=== PATIENT | male | born 2000 | race Caucasian/White ===

== ENCOUNTER 2024-07-30 13:17 | Emergency (ER) | payer MEDICAID, SELFPAY ==
[2024-07-30 13:23] VITALS: BP 153/90; PULSE 74; RESP 16; TEMP 36.4; O2SAT 99; BMI 23.6
--- NOTE | 2024-07-30 13:28 | ED_ITS ---
HPI - Dental/Oral 2 General: Chief complaint: Dental/Oral Stated complaint: left jaw swelling and pain Time Seen by Provider: 07/30/24 13:21 Source: patient Mode of arrival: ambulatory Limitations: no limitations History of Present Illness: Patient is a 23-year-old male presents to ED today with a complaint of mouth pain near his left lower third molar. He states he has had intermittent pain here previously that has always went away but states he has now had pain for several days. He has not noticed any swelling to his face. He is not having any trouble eating, drinking, speaking, swallowing. Teeth map: 1. Onset (ago): day(s) Duration: constant Severity: moderate Relieving factors: nothing Exacerbating factors: nothing Associated symptoms: Denies ear or mastoid pain, fever(s) or odynophagia Related Data Previous Rx's Medication Instructions Recorded chlorhexidine gluconate 0.12 % 15 ml buccal BID #473 mL 07/30/24 mouthwash (Peridex) penicillin V potassium 500 mg 500 mg PO Q8H 7 days #21 tabs 07/30/24 tablet Allergies Allergy/AdvReac Type Severity Reaction Status Date / Time No Known Allergies Allergy Verified 07/30/24 13:25 Review of Systems 2 Const: Denies: fever(s), chills, body aches, fatigue or malaise ENMT: Reports: mouth pain; Denies: throat pain, uvular edema, enlarged tonsils, odynophagia, hoarseness, swelling of lips/tongue, dry mouth or ear or mastoid pain Card: Denies: chest pain Resp: Denies: dyspnea GI: Denies: nausea or vomiting Musc: Denies: neck pain Neuro: Denies: headache(s) Physical Exam 2 Const: COMMON NORMALS: no acute distress, average body habitus, no limitations, healthy appearing, alert and well nourished HENMT: FACE & SINUS: normal facial exam; no edema MOUTH: Normal oral and palatal mucosa present and lip normal TEETH & GINGIVA IMAGES: 1. impacted wisdom tooth with surrounding edema/erosion into buccal mucosa THROAT: posterior oropharynx normal and tonsils normal; no uvular edema Neck/C-Spine: GENERAL: Yes normal visual inspection, No anterior neck swelling and No submandibular swelling Neuro: SENSORIUM/ORIENTATION: Yes alert Course 2 Vital Signs: Vital signs: Vital Signs Temperature 97.5 F L 07/30/24 13:23 Pulse Rate 74 07/30/24 13:23 Respiratory Rate 16 07/30/24 13:23 Blood Pressure 153/90 07/30/24 13:23 Pulse Oximetry 99 07/30/24 13:23 Oxygen Delivery Me thod Room Air 07/30/24 13:23 MDM - Dental/Oral Medical Decision Making Recommend follow up with dentist as soon as possible as he needs extraction. Discussed to call ahead of time to make sure they perform impacted wisdom tooth extraction-he may require OMFS. Patient verbalized understanding. Return precautions discussed. No radiology studies performed this visit Discharge Plan Discharge Patient Disposition: Home Clinical Impression: Impacted third molar tooth Condition: Stable Prescriptions: New penicillin V potassium 500 mg tablet 500 mg PO Q8H 7 Days Qty: 21 0RF Peridex 0.12 % mouthwash 15 ml BUCCAL BID Qty: 473 0RF Discharge Orders: Discharge ED (Routine); Ordered 07/30/24 Ordered By: Katrina Mishra Referrals: Nery Spaulding FNP [Primary Care Provider] - Coding Level of Care Code ED [employer] for Christina Rogers
[2024-07-30 13:43] VITALS: BP 138/91; PULSE 78; RESP 18; O2SAT 98
== END 2024-07-30 13:44 | disposition home or self-care (01) ==
PROVIDERS: Emergency Provider Physician Assistant; PCP Nurse Practitioner Family
DX: K01.1 Impacted teeth (principal)
CPT/HCPCS: 99283